=== PATIENT | male | born 2000 | race Caucasian/White ===

== ENCOUNTER 2024-06-04 21:43 | Emergency (ER) | payer BC, SELFPAY ==
[2024-06-04 21:48] VITALS: BP 161/92; PULSE 73; RESP 16; TEMP 37.5; O2SAT 100; BMI 30.5
--- NOTE | 2024-06-04 22:03 | ED.GENADULT ---
HPI - General Adult General Time Seen by Provider: 22:03 Date Seen: 06/04/24 Chief complaint: Unspecified Complaint, Adult Stated complaint: Joint pain Time Seen by Provider: 06/04/24 22:02 Source: patient and RN notes reviewed Mode of arrival: ambulatory Limitations: no limitations History of Present Illness HPI narrative: This 24-year-old male is coming in with concern of chest symptoms that have been there for about 6 months. He has been dealing with a security lead for ongoing GERD issues. Was initially on omeprazole 20 twice a day, was switched to Nexium. Still has a sense of buildup in air buildup in his chest, reflux symptoms. He is scheduled to have an EGD on June 18. He is having no nausea vomiting, no abdominal pain. No dysphagia. He is having no difficulty breathing. He does admit that he thinks about his heart sometimes. There is no palpitations. No fevers or chills. He also notes the last 2 days his palms of his hands have been sore. There sore just in the palm some self, denies any trauma. 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 There is no numbness tingling, no swelling. He has not tried any Tylenol or ibuprofen. It is not swelling or hurting into the fingers, the pain is not in the wrist. He has generalized pain in the palms of his hands. Related Data Home Medications ?Medication ?Instructions ?Recorded ?Confirmed omeprazole 20 mg capsule,delayed 20 mg PO BID 06/04/24 06/04/24 release Allergies Allergy/AdvReac Type Severity Reaction Status Date / Time No Known Drug Allergies Allergy Verified 08/28/23 15:12 Review of Systems Status of ROS: Reports: 6 or more systems reviewed and unremarkable except as noted in History and below [facility] Medical History Otitis media, left ?H66.92 - Otitis media, unspecified, left ear (ICD-10) Exam Const: Vital Signs, click to edit/add: Vital Signs - 24 hr 06/04/24 21:48 Temperature 99.5 F Pulse Rate [Left P ulse Oximeter] 73 Respiratory Rate 16 Blood Pressure [Ri ght Upper Arm] 161/92 H Pulse Oximetry 100 Oxygen Delivery Me thod Room Air This 24-year-old male is alert, interactive, no apparent distress. He is very pleasant, able speak in complete sentences. Pupils are equal round, sclera clear, conjugate gaze. Symmetrical facial function. Neck is supple, no adenopathy, thyromegaly masses or nodules. Sits up easily, lungs are clear, good air entry, no wheezing or crackles. CV regular rate and rhythm, no murmur, normal S1-S2, no S3-S4. Abdomen is soft, nontender, nondistended, no organomegaly, no rebound or guarding. His fingers palms wrists and both upper extremities are fully mobile, there is no effusions of his joints, full range of motion. He has full flexion extension of his fingers, wrists or fully mobile. Hand automotive project engineer strength is good. There is absolutely no swelling, no erythema, no skin changes. I cannot reproduce up point area of maximal tenderness. He states his palms or just generally sore. There are no symptoms with palpation of his wrist. I cannot isolate any pain over the metacarpals. Hand interosseous in hand automotive project engineer strength are all normal. Documenting provider has reviewed patient's vital signs: yes Course Course ED Course: Patient and I reviewed that I a and him a significant step backwards for his reflux symptoms. He is already seen a security lead, needs to complete the EGD. We discussed if the EGD is normal any continues to have symptoms they may consider other workup such as pH manometry. At this time, I can offer him an EKG and troponin just to ensure that there is no underlying heart issues. I am doubtful that this is going to be a problem for him. He is not aware of any family history of cardiac issues. Will do some baseline labs with some inflammatory markers. As far as the pain in the palm of his hands. He has no neurologic changes to suggest that he is getting carpal tunnel. His symptoms have only been present for 2 days. He has not tried any Tylenol or ibuprofen. I would suggest Tylenol so that he does not aggravate reflux with ibuprofen. He may have to follow this and see where his symptoms go but 2 days of palm pain with no other musculoskeletal symptoms, no skin changes, no swelling, no neurologic changes really does not point me to any specific etiology or workup direction. I do not think x-rays are going to benefit us tonight. We will do the basic labs, EKG and likely discharge to home. Reevaluation(s) Time of Reevaluation #1: 23:49 Reevaluation #1: Reviewed normal lab results, reassuring EKG with patient. We discussed his hand symptoms. Discussed signs and symptoms to watch for such as swelling, development of numbness tingling, progressive pain. With 2 days the symptoms in no changes on physical exam, is difficult to pinpoint an etiology. We did discuss such things as carpal tunnel and how may present. It is far too early with 2 days of symptoms for me to suggest that it might be that. I really have no idea what the etiology of his bilateral palmar hand pain is. As far as his reflux symptoms and chest symptoms, very likely from his reflux. He is to follow-up with his security lead incomplete his EGD. Plan will be to discharge to home for further ongoing outpatient workup. Vital Signs Vital signs: Initial Vital Signs Temperature 99.5 F 06/04/24 21:48 Temperature Source Temporal Artery Scan 06/04/24 21:48 Pulse Rate 73 06/04/24 21:48 Pulse Rhythm Regular 06/04/24 21:48 Respiratory Rate 16 06/04/24 21:48 Blood Pressure 161/92 H 06/04/24 21:48 Blood Pressure Mean 115 H 06/04/24 21:48 Blood Pressure Position Sitting 06/04/24 21:48 Pulse Oximetry 100 06/04/24 21:48 Oxygen Delivery Method Room Air 06/04/24 21:48 Vital Signs Temperature 99.5 F 06/04/24 21:48 Pulse Rate 73 06/04/24 21:48 Respiratory Rate 16 06/04/24 21:48 Blood Pressure 161/92 H 06/04/24 21:48 Pulse Oximetry 100 06/04/24 21:48 Oxygen Delivery Method Room Air 06/04/24 21:48 Temperature 99.5 F 06/04/24 21:48 Pulse Rate 73 06/04/24 21:48 Respiratory Rate 16 06/04/24 21:48 Blood Pressure 161/92 H 06/04/24 21:48 Pulse Oximetry 100 06/04/24 21:48 Oxygen Delivery Method Room Air 06/04/24 21:48 Medical Decision Making Lab Data Labs: Lab Results 06/04/24 06/04/24 Range/Units 22:27 22:55 WBC 8.39 (4.50-11.00) K/uL RBC 5.58 (4.30-5.90) m/uL Hgb 16.1 (13.5-17.5) gm/dL Hct 47.3 (37.0-53.0) % MCV 85 (80-100) fL MCH 29 (26-34) pg MCHC 34 (32-36) gm/dL RDW Coeff of Aidee 12.8 (11.5-15.5) % Plt Count 317 (140-440) K/uL Neut % (Auto) 53.6 (42.0-72.0) % Lymph % (Auto) 32.2 (20-44) % [place] % (Auto) 10.7 (0.0-11.0) % Eos % (Auto) 2.4 (0.0-7.0) % Baso % (Auto) 0.4 (0.0-3.0) % Neut # (Auto) 4.50 (1.7-7.0) K/uL Lymph # (Auto) 2.70 (0.90-2.90) K/uL [place] # (Auto) 0.90 (0.00-0.90) K/UL Eos # (Auto) 0.20 (0.00-0.50) K/uL Baso # (Auto) 0.03 (0.00-0.30) K/uL Abs Immat Gran (auto) 0.06 (0.00-0.30) K/uL Imm/Tot Granulo (auto) 0.7 % Sodium 139 (135-149) mmol/L Potassium 3.7 (3.6-5.1) mmol/L Chloride 104 (96-114) mmol/L Carbon Dioxide 26 (20-32) mmol/L Anion Gap 9 (7-15) mEq/L BUN 13 (5-24) mg/dL Creatinine 0.8 (0.5-1.5) mg/dL Estimated Creat Clear 157.63 Estimated GFR 128 ml/min Glucose 96 (60-115) mg/dL Calcium 9.8 (8.4-10.6) mg/dL Troponin I < 0.01 L (0.01-0.04) ng/mL C-Reactive Protein 0.5 (0.5-1.0) mg/dL Lab Acknowledgement Test Added ECG Data Attestation: I personally reviewed and interpreted this ECG as follows: (Normal sinus rhythm with sinus arrhythmia, rate 67 beats per minute. Some artifact in V3. Flattened T-waves lead 3. Otherwise, no concerning ST or T-wave changes, no active ischemia or infarct noted. ) Prior ECG tracings: not available for review Discharge Plan Discharge Clinical Impression: Chest pain due to GERD Patient Disposition: Home, Self-Care Condition: Stable Instructions: GERD (Gastroesophageal Reflux Disease) (ED), Noncardiac Chest Pain (ED) Additional Instructions: Need to follow through with the endoscopy as scheduled by your security lead. Can try some Tylenol 1000 mg up to 3 times a day for your hand discomfort. If you continue to notice pain in your hands, need to follow up in clinic with a primary care provider and have further workup. Activity Level: Activity as Tolerated Prescriptions: No Action omeprazole 20 mg capsule,delayed release(DR/EC) 20 mg PO BID Follow Up/Referrals: Provider,Not a Local [Primary Care Provider] - Stand Alone Forms: [employer] Info Instructions
--- OUTSIDE RECORDS SUMMARY | 2024-06-04 22:24 | XMS_ITS | Referral Summary ---
Author Organization [facility] Address [address] [place] [address]. [place] [address] Care Team Providers Care Performance Improvement Manager Name Role Phone No Ref-Primary, Physician Primary Care Provider Mirna Funk PA-C Unavailable [phone] Allergies No known active allergies Medications No known medications Active Problems Problem Noted Date Diagnosed Date Gastroesophageal reflux disease without esophagi tis 12/12/2023 Social History Tobacco Use Types Packs/Day Years Used Date Smoking Tobacco: Never Smokeless Tobacco: Never Alcohol Use Standard Drinks/Week Comments No 0 (1 standard drink = 0.6 oz pur e alcohol) Adolescent Education Answer Date Record ed Getting School Help Needed Not on file 11/29 Sex and Gender Information Value Date Recorded Sex Assigned at Not on file Gender Identity Not on file Sexual Orientation Not on file Last Filed Vital Signs Vital Sign Reading Time Taken Comments Blood Pressure 152/98 11/29/2023 11:48 AM LIABILITY CLAIMS EXAMINER Pulse 103 11/29/2023 11:48 AM LIABILITY CLAIMS EXAMINER Temperature 36.1 ??C (97 ??F) 11/29/2023 11:48 AM LIABILITY CLAIMS EXAMINER Respiratory Rate 18 05/17/2017 3:45 PM CDT Oxygen Saturation 100% 11/29/2023 11:48 AM LIABILITY CLAIMS EXAMINER Inhaled Oxygen Concentration - - Weight 99.8 kg (220 lb) 11/29/2023 11:48 AM LIABILITY CLAIMS EXAMINER Height 182.9 cm (6') 11/29/2023 11:48 AM LIABILITY CLAIMS EXAMINER Body Mass Index 29.84 11/29/2023 11:48 AM LIABILITY CLAIMS EXAMINER Plan of Treatment Not on file Care Teams Performance Improvement Manager Relationship Specialty Start Date End Date No Ref-Primary, Physician PCP - General 11/29/23 Mirna Funk PA-C [address] [place] [address] Physician Dinkey Locomotive Engineer Gastroenterology 12/09/23
--- OUTSIDE RECORDS SUMMARY | 2024-06-04 22:24 | XMS_ITS | Clinical Summary ---
Author Organization [facility] [place] [address] Care Team Providers Care Insurance Account Executive Name Role Phone Pcp, No Primary Care Provider Unavailabl e Allergies No known active allergies Medications Medication Sig Dispensed Refills Start Date End Date Status predniSONE (DELTASONE) 50 mg tab tabletIndications:Sor e throat One po QAM as needed symptoms. 10 Tablet 06/12/2022 Active Immunizations Name Administration Dates Next Due DTaP 04/15/2006, 1,2001,05/21 DTaP-HIB (TriHIBIT) 06/25/2002 HIB-HepB (Comvax) 2001,2001 Hepatitis B (Peds) 01/01/2002 Inactivated Polio Vaccine 04/15/2006,,2001,05/21 Influenza, IIV3 (Age >=3 years) 09/21/2003,09/18,08/13/2002 Influenza, IIV4 08/28/2018 Influenza,LAIV4 Live Intrana kathy (Flumist) 06/08/2013 MMR 04/15/2006,2002 Meningococcal Vaccine (Menveo) 06/08/2013 Pneumococcal conj 7-Valent (Prevnar 7) 0 03/16/2003,01/01/2002,2001,05/21 Td, Preservative Free (age >= 7 Years) 8 Tdap 06/08/2013 Varicella Vaccine 06/08/2013,2002 Family History Medical History Relation Name Comments No Known Problems Father No Known Problems Mother Relation Name Status Comments Father Mother Social History Tobacco Use Types Packs/Day Years Used Date Smoking Tobacco: Never Smokeless Tobacco: Never Alcohol Use Standard Drinks/Week Comments Yes 0 (1 standard drink = 0.6 oz pur e alcohol) socially PHQ-2 Answer Date Recorded PHQ-2 TOTAL SCORE 0 09/28/2020 Social Connections Answer Date Recorded Frequency of Communication with Friends and Fami ly Not on file 10/14/2021 Financial Resource Strain Answer Date R ecorded Difficulty of Paying Living Expenses Not on file 10/14/2021 Difficulty of Paying Living Expenses Not on file 10/14/2021 Sex and Gender Information Value Date Recorded Sex Assigned at Not on file Gender Identity Not on file Sexual Orientation Not on file Obstetrics History Last Filed Vital Signs Vital Sign Reading Time Taken Comments Blood Pressure 148/72 06/12/2022 2:35 PM CDT Pulse 100 06/12/2022 2:32 PM CDT Temperature 36.9 ??C (98.4 ??F) 06/12/2022 2 :32 PM CDT Respiratory Rate - - Oxygen Saturation 100% 09/28/2020 1:4 5 PM HIV NURSE Inhaled Oxygen Concentration - - Weight 101.5 kg (223 lb 11. 2 oz) 06/12/2022 2:32 PM CDT with shoes Height 182.9 cm (6') 09/28/2020 1:45 PM HIV NURSE Body Mass Index - - Plan of Treatment Upcoming Encounters Date Type Department Care Team (Late st Contact Info) Description 06/05/2024 1:05 PM CDT Office Visit [facility] [address] [place] [address] [place] [address] [place] [address] [place] [address] Health Maintenance Due Date Last Done Comments HIV for age 15-65 2016 HPV series for age 9-26 (1 - Male 3-dose series) 2016 Hepatitis C screening for age 18-79 2019 BMI (ht and wt on same day) for age 18+ 09/28/2021 09/28/2020 Depression screening for age 12+ 09/28/2021 09/28/2020 COVID-19 vaccine series (2022-24 season) 2023 Influenza for age 9-49 06/14/2024 8, 06/08/2013, 09/21/2003, Additional history exists Tetanus booster 08/06/2028 08/06/2018, 06/08/2013 Pneumococcal series for age 6-64 Aged Out 03/16/2003, 01/01/2002, 2001, Additional history exists No longer eligible based on patient's age to complete this topic Tdap Completed 06/08/2013 Care Teams Insurance Account Executive Relationship Specialty Start Date End Date Pcp, No . PCP - General 09/28/20
--- OUTSIDE RECORDS SUMMARY | 2024-06-04 22:24 | XMS_ITS | Clinical Summary ---
Author Organization [facility] Address [address] [place] [address]. [place] [address] Care Team Providers Care Hides And Skins Colorer Name Role Phone No Ref-Primary, Physician Primary Care Provider Mirna Funk PA-C Unavailable [phone] Allergies No known active allergies Medications [...] Comments Blood Pressure 152/98 11/29/2023 11:48 AM CHECKROOM CHIEF Pulse 103 11/29/2023 11:48 AM CHECKROOM CHIEF Temperature 36.1 ??C (97 ??F) 11/29/2023 11:48 AM CHECKROOM CHIEF Respiratory Rate 18 05/17/2017 3:45 PM CDT Oxygen Saturation 100% 11/29/2023 11:48 AM CHECKROOM CHIEF Inhaled Oxygen Concentration - - Weight 99.8 kg (220 lb) 11/29/2023 11:48 AM CHECKROOM CHIEF Height 182.9 cm (6') 11/29/2023 11:48 AM CHECKROOM CHIEF Body Mass Index 29.84 11/29/2023 11:48 AM CHECKROOM CHIEF Plan of Treatment Health Maintenance Due Date Last Done Comments ADVANCE CARE PLANNING 2001 ANNUAL REVIEW OF HM ORDERS 2001 YEARLY PREVENTIVE VISIT 2001 HIV SCREENING 2016 HPV IMMUNIZATION (1 - Male 3-dose series) 2016 HEPATITIS C SCREENING 2019 COVID-19 Vaccine (1 - season) 2023 PHQ-2 (once per calendar year) 2023 INFLUENZA VACCINE (#1) 2024 8, 06/08/2013, 09/21/2003, Additional history exists DTAP/TDAP/TD IMMUNIZATION (8 - Td or Tdap) 08/06/2028 08/06/2018, 06/08/2013, 04/15/2006, Additional history exists HEPATITIS B IMMUNIZATION Completed 002, 2001, 2001 Pneumococcal Vaccine: Pediatrics (0 to 5 Years) and At-Risk Patients (6 to 64 Years) Aged Out 03/16/2003, 01/01/2002, 2001, Additional history exists No longer eligible based on patient's age to complete this topic IPV IMMUNIZATION Completed 04/15/2006, , 2001, Additional history exists MENINGITIS IMMUNIZATION Aged Out 06/08/2013 No l onger eligible based on patient's age to complete this topic RSV MONOCLONAL ANTIBODY Aged Out No l onger eligible based on patient's age to complete this topic Care Teams Hides And Skins Colorer Relationship Specialty Start Date End Date No Ref-Primary, Physician PCP - General 11/29/23 Mirna Funk PA-C [address] [place] [address] Physician Hot Patcher Gastroenterology 12/09/23
[2024-06-04 22:39] LABS: Basophils Absolute Auto 0.03 K/uL (0.00-0.30); Basophils Percent Auto 0.4 % (0.0-3.0); Eosinophils Percent Auto 2.4 % (0.0-7.0); Hematocrit 47.3 % (37.0-53.0); Hemoglobin* 16.1 gm/dL (13.5-17.5); Immature Granulocytes Abs Auto 0.06 K/uL (0.00-0.30); Immature Granulocytes Pct Auto 0.7 %; Lymphocytes Percent Auto 32.2 % (20-44); Mean Corpuscular HGB Conc 34 gm/dL (32-36); Mean Corpuscular Hemoglobin 29 pg (26-34); Mean Corpuscular Volume 85 fL (80-100); Monocytes Percent Auto 10.7 % (0.0-11.0); Neutrophils Percent Auto 53.6 % (42.0-72.0); Platelet Count* 317 K/uL (140-440); RDW Coefficient of Variation % 12.8 % (11.5-15.5); Red Blood Count 5.58 m/uL (4.30-5.90); Slide Review Reflex No; White Blood Count* 8.39 K/uL (4.50-11.00)
[2024-06-04 22:51] LABS: Chloride* 104 mmol/L (96-114); Potassium* 3.7 mmol/L (3.6-5.1); Sodium* 139 mmol/L (135-149)
[2024-06-04 22:54] LABS: Creatinine* 0.8 mg/dL (0.5-1.5); Est. Creatinine Clearance* 157.63; Estimated Glomerular Filt Rate 128 ml/min
[2024-06-04 22:55] LABS: Anion Gap 9 mEq/L (7-15); Blood Urea Nitrogen* 13 mg/dL (5-24); Calcium* 9.8 mg/dL (8.4-10.6); Carbon Dioxide* 26 mmol/L (20-32); Glucose* 96 mg/dL (60-115)
[2024-06-04 22:58] LABS: C Reactive Protein* 0.5 mg/dL (0.5-1.0)
[2024-06-04 23:21] LABS: Troponin I* < 0.01 ng/mL (0.01-0.04)
== END 2024-06-04 23:57 | disposition home or self-care (01) ==
PROVIDERS: Emergency Provider Family Medicine
DX: R07.89 Other chest pain (principal); K21.9 Gastro-esophageal reflux disease without esophagitis
CPT/HCPCS: 36415; 80048; 84484; 85025; 86140; 93005; 99284